=== PATIENT | female | born 1955 | race Two or more races ===

== ENCOUNTER → 2020-10-23 | Outpatient (CLI) | payer MEDICARE, BC ==
[2014-05-13 11:25] VITALS: BP 145/70
[~2020-10-23] MED LIST: CHOL100013 PO; GABA300C18 PO; MULT-445 PO
== END ==
LOC: PF 11:06
PROVIDERS: ATTEND Nurse Practitioner Family
DX: J44.9 Chronic obstructive pulmonary disease, unspecified (principal)
CPT/HCPCS: 94060; 94640; 94726; 94729; 94664

== ENCOUNTER → 2020-11-24 | Outpatient (CLI) | payer MEDICARE, BC ==
[2014-05-13 11:25] VITALS: BP 145/70
--- NOTE | 2020-11-24 14:43 | RAD ---
EXAM: Left hand, 3 views. HISTORY: Fracture follow-up. COMPARISON: None. FINDINGS: 3 views of the left hand are obtained. There are mildly angulated fractures involving the p roximal fourth and fifth proximal phalanges, the former which demonstrates slight surrounding callus formation. These appear to be subacute. There is minimal degenerative spurring involving the base of the first metacarpal and involving the second distal interphalangeal joint. IMPRESSION: Mildly angulated subacute appearing fractures involving the proximal fourth and fifth pro ximal phalanges. Electronically signed by: Gale Briseno MD (11/24/2020 2:41 PM) [id number]
== END ==
LOC: RAD 14:01
PROVIDERS: ATTEND Plastic Surgery
DX: S62.92XA Unspecified fracture of left hand, initial encounter for closed fracture (principal); X58.XXXA Exposure to other specified factors, initial encounter; Y93.89 Activity, other specified; Y92.89 Other specified places as the place of occurrence of the external cause; Y99.8 Other external cause status
CPT/HCPCS: 73130

== ENCOUNTER → 2020-12-05 | Outpatient (CLI) | payer MEDICARE, BC ==
[2014-05-13 11:25] VITALS: BP 145/70
--- NOTE | 2020-12-06 09:37 | KCIC ---
EXAM: PA, oblique and lateral views of the left hand DATE: 12/05/2020 3:35 PM INDICATION: Reason: CLOSED NON DISPLACED FRACTURES OF THE HAND AND WRIST / Spl. Instructions: Pain af ter a recent fall. Suspected fractures in hand and wrist. / History: . COMPARISON: 11/24/2020 FINDINGS/ IMPRESSION: Nondisplaced fractures of the proximal third, fourth, fifth proximal phalanx without definite MCP ext ension, stable alignment. Findings suggesting progressive healing. Multifocal degenerative changes ar e seen. Decreased bone mineral density. Electronically signed by: Jamey Sandoval MD (12/06/2020 9:34 AM) DAIANA
== END ==
LOC: KCIC 15:30
PROVIDERS: ATTEND Plastic Surgery
DX: S62.643A Nondisplaced fracture of proximal phalanx of left middle finger, initial encounter for closed fracture (principal); S62.647A Nondisplaced fracture of proximal phalanx of left little finger, initial encounter for closed fracture; S62.645A Nondisplaced fracture of proximal phalanx of left ring finger, initial encounter for closed fracture; M19.042 Primary osteoarthritis, left hand; X58.XXXA Exposure to other specified factors, initial encounter; Y93.89 Activity, other specified; Y92.89 Other specified places as the place of occurrence of the external cause; Y99.8 Other external cause status
CPT/HCPCS: 73130

== ENCOUNTER → 2020-12-23 | Outpatient (CLI) | payer MEDICARE, BC ==
[2014-05-13 11:25] VITALS: BP 145/70
--- NOTE | 2020-12-24 08:45 | KCIC ---
EXAM: XR HAND_LEFT 3 VIEWS 12/23/2020 3:54 PM CLINICAL INDICATION: AP supine since contraction or. Left hand fracture follow-up COMPARISON: 12/05/2020 TECHNIQUE: PA, oblique, and lateral views of the left hand FINDINGS: The bones are diffusely demineralized. The fractures at the base of the third, fourth, and fifth proximal phalanges demonstrate increased sclerosis and callus formation consistent with ongoin g healing. There is no new fracture. Alignment is normal. Joint spaces are maintained. No focal soft tissue abnormality. IMPRESSION: Healing third, fourth, and fifth proximal phalanx fractures. Electronically signed by: Melvi Arrington MD (12/24/2020 8:43 AM) [id number]
== END ==
LOC: KCIC 15:48
PROVIDERS: ATTEND Plastic Surgery
DX: S62.615D Displaced fracture of proximal phalanx of left ring finger, subsequent encounter for fracture with routine healing (principal); L84 Corns and callosities; M72.0 Palmar fascial fibromatosis [Dupuytren]; X58.XXXD Exposure to other specified factors, subsequent encounter
CPT/HCPCS: 73130

== ENCOUNTER → 2020-12-25 | Outpatient (CLI) | payer MEDICARE, BC ==
[2014-05-13 11:25] VITALS: BP 145/70
--- NOTE | 2020-12-25 17:17 | KCIC ---
EXAM: XR HAND_RIGHT 3 VIEWS 12/25/2020 12:35 PM CLINICAL INDICATION: Right hand pain, fell 1.5 months ago COMPARISON: None TECHNIQUE: 3 views of the right hand FINDINGS: The bones are diffusely demineralized. There is no acute or healing fracture. Alignment is normal. Minimal first CMC degenerative joint disease. No erosions. Soft tissues normal. IMPRESSION: No acute osseous abnormality. Electronically signed by: Melvi Arrington MD (12/25/2020 5:14 PM) [id number]
== END ==
LOC: KCIC 12:32
PROVIDERS: ATTEND Plastic Surgery
DX: M18.11 Unilateral primary osteoarthritis of first carpometacarpal joint, right hand (principal)
CPT/HCPCS: 73130

== ENCOUNTER → 2021-01-01 | Outpatient (CLI) | payer MEDICARE, BC ==
[2014-05-13 11:25] VITALS: BP 145/70
--- NOTE | 2021-01-01 15:54 | KCIC ---
EXAM: 3 views both hands DATE: 01/01/2021 10:23 AM INDICATION: Reason: Dupuytren's contracture Lt hand, Rt hand pain. / Spl. Instructions: Hx. fx 3rd-5t h digits. Pt fell 6 wks. ago. / History: . COMPARISON: No Prior FINDINGS: Left hand: Progressively healing fractures at the base of the proximal third fourth and fifth metacarpals, in st able alignment. Decreased bone mineral density. No new/acute fracture is seen. Right hand: No evidence of acute fracture or dislocation. Thumb CMC and scattered IP joint DJD. Decreased bone mi neral density. IMPRESSION: 1. Progressively healing fractures of the left proximal third fourth and fifth metacarpals in stable alignment. 2. Decreased bone mineral density. Electronically signed by: Jamey Sandoval MD (01/01/2021 3:52 PM) [id number]
== END ==
LOC: KCIC 10:15
PROVIDERS: ATTEND Plastic Surgery
DX: S62.615D Displaced fracture of proximal phalanx of left ring finger, subsequent encounter for fracture with routine healing (principal); S62.613D Displaced fracture of proximal phalanx of left middle finger, subsequent encounter for fracture with routine healing; S62.512D Displaced fracture of proximal phalanx of left thumb, subsequent encounter for fracture with routine healing; M85.842 Other specified disorders of bone density and structure, left hand; M19.041 Primary osteoarthritis, right hand; M72.0 Palmar fascial fibromatosis [Dupuytren]; X58.XXXD Exposure to other specified factors, subsequent encounter
CPT/HCPCS: 73130-50

== ENCOUNTER → 2021-01-30 | Outpatient (CLI) | payer MEDICARE, BC ==
[2014-05-13 11:25] VITALS: BP 145/70
--- NOTE | 2021-01-31 13:18 | KCIC ---
Exam performed: Left hand 3 views. Indication: Follow-up fractures. Date of Service: 01/30/2021 Comparison: Several prior x-rays of the left hand including most recent x-ray bilateral hand from 01/01/2021 Discussion: PA, oblique lateral radiographs of the hand reveal the osseous structures to be intact and well align ed. Healing fractures of the bases of left fourth and fifth proximal phalanges seen. There is mild as sociated soft tissue swelling. The joint spaces are well-preserved. The articular margins are smooth. No definite foreign bodies detected. Impression: Healing fractures left proximal fourth and fifth proximal fillings noted. Electronically signed by: Yolanda Escobar MD (01/31/2021 1:16 PM) LARRY
== END ==
LOC: KCIC 14:05
PROVIDERS: ATTEND Plastic Surgery
DX: S62.607D Fracture of unspecified phalanx of left little finger, subsequent encounter for fracture with routine healing (principal); S62.615D Displaced fracture of proximal phalanx of left ring finger, subsequent encounter for fracture with routine healing; X58.XXXD Exposure to other specified factors, subsequent encounter
CPT/HCPCS: 73130

== ENCOUNTER → 2021-03-16 | Outpatient (CLI) | payer MEDICARE, BC ==
[2014-05-13 11:25] VITALS: BP 145/70
--- NOTE | 2021-03-16 12:49 | RAD ---
EXAM: Left hand, 3 views. HISTORY: Fracture follow-up. COMPARISON: 01/30/2021. FINDINGS: 3 views of the left hand are obtained. There has been progressive healing of fractures invo lving the proximal fourth and fifth proximal phalanges. No new fracture is seen. There is no foreign body. There is no suspicious osseous lesion. IMPRESSION: Progressive healing or healed proximal fourth and fifth proximal phalanx fractures. Electronically signed by: Gale Briseno MD (03/16/2021 12:46 PM) [id number]
== END ==
LOC: RAD 12:11
PROVIDERS: ATTEND Plastic Surgery
DX: S62.607D Fracture of unspecified phalanx of left little finger, subsequent encounter for fracture with routine healing (principal); S62.603D Fracture of unspecified phalanx of left middle finger, subsequent encounter for fracture with routine healing; S62.605D Fracture of unspecified phalanx of left ring finger, subsequent encounter for fracture with routine healing; X58.XXXD Exposure to other specified factors, subsequent encounter
CPT/HCPCS: 73130

== ENCOUNTER → 2021-05-08 | Outpatient (CLI) | payer MEDICARE, BC ==
[2014-05-13 11:25] VITALS: BP 145/70
--- NOTE | 2021-05-10 01:19 | RAD ---
Exam: XR HAND_LEFT 3 VIEWS History: Fracture phalanx of left ring finger and left middle finger. Dupuytren's. Comparison: 03/16/2021, 11/24/2020. Findings: Diffusely decreased osseous mineralization. No acute fracture or dislocation. Healed fractures of the base of the fourth and fifth proximal phalanx. Mild degenerative changes of the interphalangeal join ts. No aggressive osseous erosive process. Soft tissues are unremarkable. Impression: 1. Healed fractures base of the fourth and fifth proximal phalanges. 2. Diffusely decreased osseous mineralization. Electronically signed by: Jose Sanchez MD (05/10/2021 1:17 AM) [facility]
== END ==
LOC: RAD 13:42
PROVIDERS: ATTEND Plastic Surgery
DX: S62.605D Fracture of unspecified phalanx of left ring finger, subsequent encounter for fracture with routine healing (principal); S62.603D Fracture of unspecified phalanx of left middle finger, subsequent encounter for fracture with routine healing; S62.607D Fracture of unspecified phalanx of left little finger, subsequent encounter for fracture with routine healing; M72.0 Palmar fascial fibromatosis [Dupuytren]; M19.042 Primary osteoarthritis, left hand; X58.XXXD Exposure to other specified factors, subsequent encounter
CPT/HCPCS: 73130

== ENCOUNTER 2021-06-04 06:43 | Day surgery (SDC) | payer MEDICARE, BC ==
[~2021-06-04] VITALS: Ht 157.5 cm; Wt 67.0 kg
[~2021-06-04 06:43] MED LIST changes: +HYDROmorphone 2 MG/ML INJ. IVP PRN; +IV RINGERS,LACTATED 1000ML 1,000 ML IV SCH; +MORPHINE SULFATE 2 MG/ML INJ. IVP PRN; +PROCHLORPERAZINE 10 MG/2 ML VIAL. IVP PRN; +fentaNYL PF VIAL 100 MCG/2 ML VIAL IVP PRN
[2021-06-04] MEDS ORDERED: OMEP-203 PO (07:13)
[2021-06-04] MEDS ORDERED: NAPR-514 PO (07:13)
[2021-06-04] MEDS ORDERED: FLUT1DIS3 IH (07:13)
[2021-06-04 07:15] VITALS: BP 181/78
[2021-06-04] MEDS ORDERED: ROCURONIUM 50 MG/5 ML VIAL. ONE (07:39)
[2021-06-04] MEDS ORDERED: PHENYLEPHRINE in 0.9% NACL PF 1 MG/10 ML SYRINGE. IV ONE (07:39)
[2021-06-04] MEDS ORDERED: PROPOFOL 10 MG/ML (20ML) VIAL. IV ONE (07:39)
[2021-06-04] MEDS ORDERED: ONDANSETRON PF 4 MG/2 ML VIAL. ONE (07:39)
[2021-06-04] MEDS ORDERED: LIDOCAINE 2% PF 5 ML VIAL. ONE (07:39)
[2021-06-04] MEDS ORDERED: DEXAMETHASONE SOD PHOS 4 MG/ML VIAL ONE (07:39)
[2021-06-04] MEDS ORDERED: SEVOFLURANE 61 TO 120 MINUTES. IH ONE (07:40)
[2021-06-04] MEDS ORDERED: EPINEPHrine VIAL 30 MG/30 ML VIAL ONE (08:10)
[2021-06-04] MEDS ORDERED: MIDAZOLAM HCL/PF 2 MG/2 ML VIAL. ONE (08:16)
[2021-06-04] MEDS ORDERED: ROPIVacaine 0.5% PF 20 ML VIAL. ONE (08:16)
[2021-06-04] MEDS ORDERED: OXYC-325 PO (08:17)
--- NOTE | 2021-06-04 08:18 | DISCH ---
DISCHARGE INSTRUCTIONS Condition on Discharge Condition on Discharge: Stable Activity After Discharge Activity Instructions for Disc: Other ROM activity Other activity instructions: Arm to remain in the sling Bathing Instructions: Shower-keep dressing dry Weight Bearing Status after Di: Non weight bearing Diet after Discharge Diet after Discharge: Regular Wound Incision Care Wound/Incision Care: Ice to area for comfort, Keep wound/cast CDI, Change dressing Other wound/incision instructi: Change dressing in [address] after DC Call your doctor for: Concerns you may have Follow-Up Follow up with: Juma in 2 wks SCOTT PICHARDO II, MD Jun 04, 2021 08:18
--- NOTE | 2021-06-04 08:22 | PDOC4 ---
Operative Note Operative Note Date of procedure: 06/04/2021 Surgeon: Steve Pichardo Revit Drafter: Praveen Davison, certified public accountant Preoperative diagnosis: Right shoulder rotator cuff tear Postop diagnosis: Right shoulder rotator cuff tear Loose body right glenohumeral joint Procedure performed: Arthroscopic right shoulder rotator cuff repair Arthroscopic right shoulder loose body removal Anesthesia: General plus regional nerve block Findings: 1. Glenoid cartilage unremarkable, humeral head cartilage showed grade 2-3 changes centrally 2. Loose body present in glenohumeral joint 3. Labrum intact circumferentially 4. Biceps tendon unremarkable 5. Supraspinatus showed intra-articular fraying and degenerative changes for approximately 4 to 5 mm and soft and friable tissue from bursal side at this area. Remainder of rotator cuff unremarkable Blood loss: 5 mL Complications: None Components inserted: [employer] Helacoil anchor Reason for procedure: Patient is a very pleasant 65-year-old with longstanding shoulder pain and dysfunction that has been slightly progressive. Please see my outpatient note for further details. Clinical and radiographic examination including MRI were consistent with the above preoperative diagnosis. Her and I had a discussion of the risks, benefits, alternatives to arthroscopic rotator cuff repair versus considering reverse shoulder replacement. We both decided that proceeding with arthroscopic rotator cuff repair would be appropriate. Description of procedure: Patient was greeted in the preoperative holding area by myself or the correct extremity was verified and marked. She was taken to the operative suite and antibiotics were started as she was brought back. Prior to proceeding to the operating room, she underwent successful placement of a regional nerve block by the anesthesiology team. Once in the operating, she was transferred gently supine to the operating table and secured to bed with all pressure points padded and had successful induction of a general anesthetic. We then set her up in a beachchair position maintaining her C-spine in neutral position, large pattern her legs as well. We proceeded to prep and drape right upper extremity and shoulder girdle in our usual sterile fashion including Ioban at the periphery. After accomplishing this, we performed our standard preoperative timeout. I then palpated marked surface anatomy and used a spinal needle to localize a posterior superior portal and incised skin in accordance with this. I introduced the blunt arthroscopic trocar in the glenohumeral joint followed by the camera. I then used a spinal needle to localize an anterosuperior portal and created this portal. I then introduced the arthroscopic probe into the glenohumeral joint and conducted my diagnostic arthroscopy with above-noted findings. I noted the loose body and introduced the arthroscopic grasper to remove it. Upon grasping it, it was quite friable and soft and I removed in a piecemeal type fashion with the grasper and shaver. I debrided some of the synovium for visualization during my diagnostic arthroscopy. Upon noting the intra-articular portion of the supraspinatus and the degenerative changes and fraying there, I passed a PDS suture through this area to be able to identified on the bursal side. I then removed the arthroscopic instrumentation from the glenohumeral joint and proceeded to place the blunt arthroscopic trocar into the subacromial space followed by the camera. I then localized and lateral portal with a spinal needle and created this with a scalpel. I then introduced the shaver and performed a bursectomy with combination of shaver and electrocautery. I then directed my attention to the area or had marked the PDS suture and was easily able to violate the substance of the tendon with the shaver, I then removed the PDS suture and debrided the rotator cuff tendon at this area. I prepared my bony bed, taking care not to decorticate. I then created an accessory anterolateral portal as I felt that a better trajectory for placement of my anchor, I used the awl and placed the anchor. I then used the loop grasper to shuttle the suture limbs sequentially out to be able to pass them in a simple configuration using my arthroscopic suture passing device. I then tied these down using arthroscopic knot tying techniques, the tear was stable gentle rotation and probing. After this, I removed all excess arthroscopic fluid and the instrumentation. The portals were then closed with 3-0 nylon in a simple interrupted fashion. She tolerated surgery well. No complications. At the inclusion, the arm and shoulder were cleansed and dried and a soft sterile bulky dressing was applied followed by an abduction pillow sling. Patient was laid supine and transferred gently spine to the recovery cart and taken to PACU in stable and extubated condition. Postoperative plan is to discharge home. She will start physical therapy with our group. She will be nonweightbearing. I will see her back in 2 weeks, sooner should a problem arise STEVE PICHARDO II, MD Jun 04, 2021 08:22
[2021-06-04] MEDS ORDERED: NEOSTIGMINE METHYLSULFATE 5 MG/5 ML SYRINGE. ONE (09:03)
[2021-06-04] MEDS ORDERED: GLYCOPYRROLATE 1 MG/5 ML VIAL. ONE (09:04)
[2021-06-04] MEDS ORDERED: fentaNYL PF VIAL 100 MCG/2 ML VIAL ONE ×2 (10:05→11:02)
[2021-06-04] MEDS ORDERED: oxyCODONE/APAP 5/325 1 TAB TABLET PO ONE (11:00)
[2021-06-04 11:08] VITALS: BP 160/98
== END 2021-06-04 11:45 | disposition home or self-care (01) ==
LOC: SURG 06:43
PROVIDERS: ATTEND Orthopaedic Surgery Sports Medicine
DX: M75.121 Complete rotator cuff tear or rupture of right shoulder, not specified as traumatic (principal); M24.011 Loose body in right shoulder; J43.9 Emphysema, unspecified; G47.30 Sleep apnea, unspecified; K21.9 Gastro-esophageal reflux disease without esophagitis; M19.90 Unspecified osteoarthritis, unspecified site; Z90.710 Acquired absence of both cervix and uterus; Z98.51 Tubal ligation status; Z98.890 Other specified postprocedural states; Z87.891 Personal history of nicotine dependence; Z72.89 Other problems related to lifestyle; Z88.2 Allergy status to sulfonamides
CPT/HCPCS: 29819; 29827; 64415; J0171; J0690; J1100; J2250; J2370; J2405; J2704; J2710; J2795; J3010; J3490; A4355; A4452; A4565; A4930; A6253; C1713